=== PATIENT | female | born 1935 | race Caucasian/White ===

== ENCOUNTER → 2017-07-30 | Outpatient (CLI) | payer MEDICARE, OTHER ==
[~2017-07-30] MED LIST: ASPI325T6 PO; COUMADIN 2MG2 MG/TAB PO; DULCOLAX5 MG PO; GLYCERIN SUPPOS1 SU4 RC; NORVASC2.5 MG PO; TENORMIN 2525 MG/TAB; TENORMIN 5050 MG/TAB PO; ULTRAM 50MG TAB50 MG PO; XARELTO10 MG PO; ZOFRAN 4MG T4 MG/TAB PO
== END ==
LOC: COL.RAD 07:51
DX: K55.8 Other vascular disorders of intestine (principal); I70.1 Atherosclerosis of renal artery; R68.81 Early satiety
CPT/HCPCS: A9541; Q9967

== ENCOUNTER → 2017-07-31 | Outpatient (CLI) | payer MEDICARE, OTHER | LOC: COL.RAD 09:35 | DX: Z01.89 Encounter for other specified special examinations (principal) ==

== ENCOUNTER → 2018-05-27 | Outpatient (CLI) | payer MEDICARE, OTHER | LOC: COL.RAD 13:01 | DX: M16.12 Unilateral primary osteoarthritis, left hip (principal) | CPT/HCPCS: J3301; Q9967 ==

== ENCOUNTER → 2018-06-02 | Outpatient (CLI) | payer MEDICARE, OTHER | LOC: MC.RAD 12:46 | DX: N63.10 Unspecified lump in the right breast, unspecified quadrant (principal) ==

== ENCOUNTER → 2019-02-18 | Outpatient (CLI) | payer MEDICARE, OTHER | LOC: MC.RAD 13:46 | DX: C50.511 Malignant neoplasm of lower-outer quadrant of right female breast (principal); N63.11 Unspecified lump in the right breast, upper outer quadrant | CPT/HCPCS: G0279 ==

== ENCOUNTER → 2019-03-02 | Outpatient (CLI) | payer MEDICARE, OTHER | LOC: MC.RAD 07:49 | DX: C50.811 Malignant neoplasm of overlapping sites of right female breast (principal) | CPT/HCPCS: G0279 ==

== ENCOUNTER 2019-05-12 09:11 | Day surgery (SDC) | payer MEDICARE, OTHER ==
[~2019-05-12] VITALS: Ht 165.2 cm; Wt 50.1 kg
[~2019-05-12 09:11] MED LIST changes: +NORVASC 5MG5 MG/TAB PO; -NORVASC2.5 MG PO
[2019-05-12 09:55] LABS: HEMATOCRIT 42.8 % (37.0-47.0); HEMOGLOBIN 13.7 g/dl (12.5-16.0); MEAN CELL VOLUME 96 fl (80.0-100.0); MEAN CORPUSCULAR HEMOGLOBIN 31 pg (27.0-31.0); MEAN CORPUSCULAR HGB CONC 32 g/dl (33.0-37.0); MEAN PLATELET VOLUME 9.1 fl (7.4-10.4); PLATELET COUNT 230 K/mm3 (130-400); RED BLOOD COUNT 4.47 M/mm3 (4.10-5.30); REDCELL DISTRIBUTION WIDTH-CV 13.5 % (11.5-14.5)
[2019-05-12 10:01] LABS: INR 1.4 (0.8-3.0); PROTHROMBIN TIME 16.7 SECONDS (9.7-12.8)
[2019-05-12 10:05] LABS: CALCIUM 9.7 mg/dL (8.4-10.2); CREATININE, serum 0.67 (0.52-1.25); POTASSIUM 4.1 mmol/L (3.4-5.0)
[2019-05-12] MEDS ORDERED: TOPROL XL 50MG50 MG PO (10:06)
[2019-05-12] MEDS ORDERED: FOSAMAX 70MG TA70 MG PO (10:07)
[2019-05-12] MEDS ORDERED: ARIMIDEX1 MG PO (10:08)
[2019-05-12] MEDS ORDERED: NEURONTIN100 MG/CAP PO (10:08)
[2019-05-12 10:09] VITALS: BP 118/85; PULSE 791; TEMP 97.6
[2019-05-12] MEDS ORDERED: ELIQUIS 2.5 PO (10:25)
[2019-05-12] MEDS ORDERED: TAMBOCOR50 MG PO (10:26)
--- NOTE | 2019-05-12 10:26 | NUR ---
pER dR Renu Kaur NURSE,ekg SENT FROM OFFICE.pT HAD DONE JUST PRIOR TO ARRIVAL.nO PRE ekg NEEDED.
[2019-05-12] MEDS ORDERED: TOPROL XL 25MG25 MG PO (10:33)
[2019-05-12 10:50] VITALS: BP 97/65; PULSE 43
[2019-05-12 11:05] VITALS: BP 130/72; PULSE 43
[2019-05-12 11:20] VITALS: BP 130/64; PULSE 45
[2019-05-12 11:35] VITALS: BP 134/67; PULSE 44
--- NOTE | 2019-05-12 11:42 | NUR ---
Discharge instructions given to pt.pt verbalizes understanding.INT removed,catheter tip intact.
--- NOTE | 2019-05-12 11:56 | NUR ---
Pt escorted out via wheelchair by this nurse.
== END 2019-05-12 12:00 | disposition home or self-care (01) ==
LOC: COL.CAR 09:11
PROVIDERS: Internal Medicine Cardiovascular Disease
DX: I48.0 Paroxysmal atrial fibrillation (principal); I48.91 Unspecified atrial fibrillation; Z79.899 Other long term (current) drug therapy; Z79.82 Long term (current) use of aspirin; C50.911 Malignant neoplasm of unspecified site of right female breast; I10 Essential (primary) hypertension; G62.9 Polyneuropathy, unspecified; Z96.641 Presence of right artificial hip joint
CPT/HCPCS: J2704

== ENCOUNTER 2019-07-07 08:31 | Day surgery (SDC) | payer MEDICARE, OTHER ==
[2019-07-07] VITALS (9 sets, daily range): BP systolic 117–156; BP diastolic 62–95; PULSE 44–94; TEMP 97.4–98.2
[~2019-07-07] VITALS: Ht 165.1 cm; Wt 49.3 kg
[~2019-07-07 08:31] MED LIST changes: +ARIMIDEX1 MG PO; +ELIQUIS 2.5 PO; +FOSAMAX 70MG TA70 MG PO; +NEURONTIN100 MG/CAP PO; +TAMBOCOR50 MG PO; +TOPROL XL 25MG25 MG PO; +TOPROL XL 50MG50 MG PO
[2019-07-07] MEDS ORDERED: TOPROL XL 25MG25 MG PO (09:17)
[2019-07-07] MEDS ORDERED: TAMBOCOR50 MG PO (09:20)
[2019-07-07 09:48] LABS: HEMATOCRIT 37.7 % (37.0-47.0); HEMOGLOBIN 12.1 g/dl (12.5-16.0); MEAN CELL VOLUME 95 fl (80.0-100.0); MEAN CORPUSCULAR HEMOGLOBIN 31 pg (27.0-31.0); MEAN CORPUSCULAR HGB CONC 32 g/dl (33.0-37.0); MEAN PLATELET VOLUME 9.2 fl (7.4-10.4); PLATELET COUNT 200 K/mm3 (130-400); RED BLOOD COUNT 3.95 M/mm3 (4.10-5.30); REDCELL DISTRIBUTION WIDTH-CV 13.4 % (11.5-14.5)
[2019-07-07 09:54] LABS: INR 1.1 (0.8-3.0); PROTHROMBIN TIME 12.3 SECONDS (9.7-12.8)
[2019-07-07 10:14] LABS: CALCIUM 9.2 mg/dL (8.4-10.2); CREATININE, serum 0.65 (0.52-1.25); POTASSIUM 3.9 mmol/L (3.4-5.0)
[2019-07-08 00:10] VITALS: BP 113/67; PULSE 64; TEMP 97.2
[2019-07-08 03:52] VITALS: BP 126/69; PULSE 59; TEMP 97.8
[2019-07-08 06:35] LABS: BASO % 0.5 % (0.0-2.0); EOS # 0.1 (0.0-0.7); EOS % 2.4 % (0-4.0); GRAN # 4.3 (1.4-6.5); GRAN % 73.5 % (42.2-75.2); HEMATOCRIT 42.7 % (37.0-47.0); HEMOGLOBIN 13.7 g/dl (12.5-16.0); LYMPH # 0.7 (1.2-3.4); LYMPH % 11.4 % (20.0-51.0); MEAN CELL VOLUME 95 fl (80.0-100.0); MEAN CORPUSCULAR HEMOGLOBIN 30 pg (27.0-31.0); MEAN CORPUSCULAR HGB CONC 32 g/dl (33.0-37.0); MEAN PLATELET VOLUME 9.4 fl (7.4-10.4); MONO # 0.7 (0.1-0.6); MONO % 11.9 % (1.7-9.3); PLATELET COUNT 203 K/mm3 (130-400); RED BLOOD COUNT 4.51 M/mm3 (4.10-5.30); REDCELL DISTRIBUTION WIDTH-CV 13.2 % (11.5-14.5)
[2019-07-08 06:56] LABS: CALCIUM 9.3 mg/dL (8.4-10.2); CREATININE, serum 0.61 (0.52-1.25); POTASSIUM 3.6 mmol/L (3.4-5.0)
[2019-07-08 07:25] VITALS: BP 124/69; PULSE 62; TEMP 97.9
[2019-07-08] MEDS ORDERED: TOPROL XL 50MG50 MG PO (09:13)
[2019-07-08] MEDS ORDERED: CEPHALEXIN500 M1 PO (09:13)
== END 2019-07-08 11:05 | disposition home or self-care (01) ==
LOC: COL.CAR 08:31 → MEDICAL 14:25 → COL.CAR 07-08 11:05
PROVIDERS: Internal Medicine Cardiovascular Disease; Nurse Practitioner
DX: I49.5 Sick sinus syndrome (principal); R55 Syncope and collapse; I77.810 Thoracic aortic ectasia; E78.5 Hyperlipidemia, unspecified; I10 Essential (primary) hypertension; M81.0 Age-related osteoporosis without current pathological fracture; M17.12 Unilateral primary osteoarthritis, left knee; M19.011 Primary osteoarthritis, right shoulder; G60.8 Other hereditary and idiopathic neuropathies; I48.0 Paroxysmal atrial fibrillation; I87.2 Venous insufficiency (chronic) (peripheral); Z88.8 Allergy status to other drugs, medicaments and biological substances; Z88.2 Allergy status to sulfonamides; Z88.1 Allergy status to other antibiotic agents; Z96.641 Presence of right artificial hip joint; Z90.11 Acquired absence of right breast and nipple; Z79.01 Long term (current) use of anticoagulants; Z82.49 Family history of ischemic heart disease and other diseases of the circulatory system; Z80.9 Family history of malignant neoplasm, unspecified
CPT/HCPCS: OP; C1785; C1894; C1898; J0690; J2250; J3010; J7030

== ENCOUNTER → 2019-08-28 | Outpatient (CLI) | payer MEDICARE, OTHER ==
[~2019-08-28] MED LIST changes: +CEPHALEXIN500 M1 PO
== END ==
LOC: COL.RAD 09:10
DX: K82.8 Other specified diseases of gallbladder (principal)
CPT/HCPCS: A9537

== ENCOUNTER → 2019-08-28 | Outpatient (CLI) | payer MEDICARE, OTHER | LOC: MC.RAD 07:53 | DX: N64.4 Mastodynia (principal); Z85.3 Personal history of malignant neoplasm of breast | CPT/HCPCS: G0279 ==

== ENCOUNTER 2019-10-07 07:44 | Inpatient (IN) | payer MEDICARE, OTHER ==
[~2019-10-07] VITALS: Ht 165.1 cm; Wt 48.2 kg
[2019-10-07] MEDS ORDERED: NORVASC 5MG5 MG/TAB PO (08:12)
[2019-10-07] MEDS ORDERED: TOPROL XL 50MG50 MG PO (08:14)
[2019-10-07 08:31] LABS: HEMATOCRIT 40.2 % (37.0-47.0); MEAN CELL VOLUME 100 fl (80.0-100.0); MEAN CORPUSCULAR HEMOGLOBIN 32 pg (27.0-31.0); MEAN CORPUSCULAR HGB CONC 32 g/dl (33.0-37.0); PLATELET COUNT 209 K/mm3 (130-400); RED BLOOD COUNT 4.01 M/mm3 (4.10-5.30)
[2019-10-07 08:32] LABS: INR 1.1 (0.8-3.0); PROTHROMBIN TIME 13.2 SECONDS (9.7-12.8)
[2019-10-07 08:35] LABS: PARTIAL THROMBOPLASTIN TIME 38.3 SECONDS (26.0-37.0)
[2019-10-07 08:42] LABS: CALCIUM 9.2 mg/dL (8.4-10.2); CREATININE, serum 0.7 (0.52-1.25); POTASSIUM 3.8 mmol/L (3.4-5.0)
[2019-10-07 09:00] VITALS: BP 131/73; PULSE 61; TEMP 98.3
[2019-10-07 09:12] LABS: THYROID STIMULATING HORMONE 3.06 uIU/mL (0.465-4.680)
--- NOTE | 2019-10-07 13:15 | NUR ---
Pt transfered to 310 per w/c by nurse [facility] . Report to Mulu Porras RN who assumed care at this time.
[2019-10-07 13:22] VITALS: BP 129/70; PULSE 59; TEMP 97.4
--- NOTE | 2019-10-07 13:23 | NUR ---
Initial visit; Patient and her thanked Electronic [employer] Gathering Camera Person for introducing herself and offering God's blessings prior to surgical procedure.
[2019-10-07 15:53] VITALS: BP 124/72; PULSE 70; TEMP 97.9
[2019-10-07 19:06] VITALS: BP 116/59; PULSE 59; TEMP 98
--- NOTE | 2019-10-07 19:09 | NUR ---
Patient observed ambulating in hallway with steady gait. Denies pain. Call light is available when returning to room.
--- NOTE | 2019-10-07 20:25 | NUR ---
Resting in bed. Assessment complete. Lungs clear. Heart sounds normal. Bowels active x4. Pulses strong throughout. No edema noted. Denies pain. Denies needs. Call light in reach.
--- NOTE | 2019-10-07 23:40 | NUR ---
Sitting at bedside. Denies needs. Telemetry box adjusted for patient. Call light in reach.
[2019-10-07 23:42] VITALS: BP 129/68; PULSE 64
[2019-10-08 03:09] VITALS: BP 137/68; PULSE 64; TEMP 97.5
--- NOTE | 2019-10-08 06:15 | NUR ---
Patient had uneventful night. Resting in bed this Am. Denies needs. Call light in reach.
[2019-10-08 06:22] LABS: BASO % 0.7 % (0.0-2.0); EOS # 0.1 (0.0-0.7); EOS % 1.6 % (0-4.0); GRAN # 2.8 (1.4-6.5); GRAN % 63.8 % (42.2-75.2); HEMOGLOBIN 13.3 g/dl (12.5-16.0); LYMPH % 21.9 % (20.0-51.0); MEAN CELL VOLUME 100 fl (80.0-100.0); MEAN CORPUSCULAR HEMOGLOBIN 32 pg (27.0-31.0); MEAN CORPUSCULAR HGB CONC 32 g/dl (33.0-37.0); MONO # 0.5 (0.1-0.6); MONO % 11.5 % (1.7-9.3); PLATELET COUNT 229 K/mm3 (130-400); RED BLOOD COUNT 4.11 M/mm3 (4.10-5.30); REDCELL DISTRIBUTION WIDTH-CV 13.8 % (11.5-14.5)
[2019-10-08 06:33] LABS: CREATININE, serum 0.67 (0.52-1.25); POTASSIUM 3.9 mmol/L (3.4-5.0)
--- NOTE | 2019-10-08 07:12 | NUR ---
Report given to MICHAEL Hutson
--- NOTE | 2019-10-08 09:35 | NUR ---
Patient has been up in room and ambulating in hallway. is currently at bedside. She denies having pain. Fresh water provided. Call light and personal items are within reach.
[2019-10-08 09:36] VITALS: BP 108/61; PULSE 62; TEMP 97.9
[2019-10-08 12:30] VITALS: BP 136/82; PULSE 82; TEMP 97.6
--- NOTE | 2019-10-08 14:45 | NUR ---
Cocoa Butter Filter Operator met with patient to discuss discharge planning. Patient lives in [place] with her , Papi (ph#[phone]). Patient sees Dr. Snowden for primary care and obtains medications from [facility] with no difficulties. Patient reports independence with ADLS and does not use any DME. Patient states DPOA-HC has been completed with [place] erisa attorney, Tariq Peck. Patient plans to return home upon discharge.
[2019-10-08 18:28] VITALS: BP 120/58; PULSE 63; TEMP 98.2
[2019-10-08 19:29] VITALS: BP 133/73; PULSE 74; TEMP 98.5
--- NOTE | 2019-10-08 19:59 | NUR ---
Resting in bed. Assessment complete. Lungs clear. Heart sounds normal. Bowels active x4. Pulses strong throughout. No edema noted. Denies pain. Denies needs at this time. INT right forearm flushed without complications. Call light in reach.
--- NOTE | 2019-10-08 20:16 | NUR ---
Report given to Aleah, patient reports having a good day and verbalizes no needs. Call light and personal items are within reach.
--- NOTE | 2019-10-08 21:50 | NUR ---
Patient woke up confused to place. Easily reorientated at this time. Will closely monitor.
[2019-10-08 23:15] VITALS: BP 129/72; PULSE 61; TEMP 98.9
--- NOTE | 2019-10-08 23:30 | NUR ---
Patient up to restroom. Alert and orientated at this time. Will continue to monitor.
[2019-10-09 04:12] VITALS: BP 128/82; PULSE 78; TEMP 97.9
[2019-10-09 06:26] LABS: CALCIUM 8.9 mg/dL (8.4-10.2); CREATININE, serum 0.64 (0.52-1.25); POTASSIUM 3.9 mmol/L (3.4-5.0)
--- NOTE | 2019-10-09 06:28 | NUR ---
Patient had uneventful night. Resting in bed this AM. Call light in reach.
[2019-10-09 06:35] LABS: BASO % 0.4 % (0.0-2.0); EOS # 0.1 (0.0-0.7); EOS % 1.7 % (0-4.0); GRAN # 2.9 (1.4-6.5); GRAN % 62.7 % (42.2-75.2); HEMATOCRIT 40.5 % (37.0-47.0); HEMOGLOBIN 13.1 g/dl (12.5-16.0); MEAN CELL VOLUME 99 fl (80.0-100.0); MEAN CORPUSCULAR HEMOGLOBIN 32 pg (27.0-31.0); MEAN CORPUSCULAR HGB CONC 32 g/dl (33.0-37.0); MEAN PLATELET VOLUME 9.1 fl (7.4-10.4); MONO # 0.6 (0.1-0.6); MONO % 12.8 % (1.7-9.3); PLATELET COUNT 216 K/mm3 (130-400); RED BLOOD COUNT 4.09 M/mm3 (4.10-5.30); REDCELL DISTRIBUTION WIDTH-CV 13.8 % (11.5-14.5)
--- NOTE | 2019-10-09 07:27 | NUR ---
Report given to MICHAEL Flowers
[2019-10-09 07:41] VITALS: BP 112/65; PULSE 58; TEMP 98
--- NOTE | 2019-10-09 09:00 | NUR ---
Pt ambulating in hallway with steady gait, denies needs.
[2019-10-09] MEDS ORDERED: BETAPACE 80MG80 MG PO (10:04)
--- NOTE | 2019-10-09 10:47 | NUR ---
Initial visit; Patient thanked Computer Terminal Operator for stopping by and offering spiritual care. Patient appears to be doing well.
--- NOTE | 2019-10-09 11:30 | NUR ---
Discharge instructions reviewed with pt regarding changes to medications and new medications. Pt verbalizes understanding, discharged home, ambulates out of facility accompanied by this nurse and pt's .
== END 2019-10-09 11:30 | disposition home or self-care (01) | DRG 310 ==
LOC: COL.CAR 07:44 → MEDICAL 09:48
PROVIDERS: Nurse Practitioner; ADMIT Internal Medicine Cardiovascular Disease
PROC: 5A2204Z Restoration of Cardiac Rhythm, Single (ICD-10-PCS; principal; 2019-10-07)
DX: I48.0 Paroxysmal atrial fibrillation (principal)
CPT/HCPCS: J7120

== ENCOUNTER → 2020-05-02 | Outpatient (CLI) | payer MEDICARE, OTHER ==
[~2020-05-02] MED LIST changes: +BETAPACE 80MG80 MG PO
== END ==
LOC: MC.RAD 10:15
DX: Z12.31 Encounter for screening mammogram for malignant neoplasm of breast (principal); C50.511 Malignant neoplasm of lower-outer quadrant of right female breast

== ENCOUNTER 2020-06-09 11:13 | Day surgery (SDC) | payer MEDICARE, OTHER ==
[2020-06-09] VITALS (10 sets, daily range): BP systolic 128–172; BP diastolic 59–94; PULSE 59–84; TEMP 96.8–97.6
[~2020-06-09] VITALS: Ht 165.1 cm; Wt 44.8 kg
[2020-06-09] MEDS ORDERED: DULCOLAX S10 MG/SUPP RC (12:05)
[2020-06-09] MEDS ORDERED: BETAPACE AF80 MG/TA1 PO (12:05)
[2020-06-10 04:33] VITALS: BP 122/68; PULSE 66; TEMP 96.9
[2020-06-10] MEDS ORDERED: NORCO 325 MG-51 TAB PO (06:31)
[2020-06-10 08:58] VITALS: BP 134/67; PULSE 67; TEMP 98.2
== END 2020-06-10 10:30 | disposition home or self-care (01) ==
LOC: SDCO 11:13 → JCC 18:00 → SDCO 06-10 10:30
DX: M70.61 Trochanteric bursitis, right hip (principal); M21.751 Unequal limb length (acquired), right femur; M19.90 Unspecified osteoarthritis, unspecified site; F32.9 Major depressive disorder, single episode, unspecified; I10 Essential (primary) hypertension; I48.91 Unspecified atrial fibrillation; Z95.0 Presence of cardiac pacemaker; Z20.828 Contact with and (suspected) exposure to other viral communicable diseases; Z79.01 Long term (current) use of anticoagulants; Z96.641 Presence of right artificial hip joint
CPT/HCPCS: OP; J0690; J1100; J2250; J2405; J2704; J2795; J7030; J7120

== ENCOUNTER → 2021-01-04 | Outpatient (CLI) | payer MEDICARE, OTHER ==
[~2021-01-04] MED LIST changes: +BETAPACE AF80 MG/TA1 PO; +DULCOLAX S10 MG/SUPP RC; +NORCO 325 MG-51 TAB PO
== END ==
LOC: COL.RAD 09:21
DX: M51.36 Other intervertebral disc degeneration, lumbar region (principal); M51.26 Other intervertebral disc displacement, lumbar region

== ENCOUNTER 2021-01-13 09:00 | Day surgery (SDC) | payer MEDICARE, OTHER ==
[2021-01-13] VITALS (7 sets, daily range): BP systolic 130–147; BP diastolic 85–100; PULSE 62–96; TEMP 97
[~2021-01-13] VITALS: Ht 165.1 cm; Wt 48.2 kg
[2021-01-13] MEDS ORDERED: NORVASC2.5 MG PO (09:51)
[2021-01-13] MEDS ORDERED: ARIMIDEX1 MG PO (09:51)
[2021-01-13 09:58] LABS: HEMATOCRIT 39.6 % (37.0-47.0); HEMOGLOBIN 12.6 g/dl (12.5-16.0); MEAN CELL VOLUME 99 fl (80.0-100.0); MEAN CORPUSCULAR HEMOGLOBIN 32 pg (27.0-31.0); MEAN CORPUSCULAR HGB CONC 32 g/dl (33.0-37.0); MEAN PLATELET VOLUME 9.4 fl (7.4-10.4); PLATELET COUNT 204 K/mm3 (130-400); RED BLOOD COUNT 3.99 M/mm3 (4.10-5.30); REDCELL DISTRIBUTION WIDTH-CV 13.2 % (11.5-14.5)
[2021-01-13 10:04] LABS: CALCIUM 9.3 mg/dL (8.4-10.2); CREATININE, serum 0.68 (0.52-1.25)
[2021-01-13 10:07] LABS: INR 1.4 (0.8-3.0); PROTHROMBIN TIME 15.7 SECONDS (9.7-12.8)
[2021-01-13 10:10] LABS: PARTIAL THROMBOPLASTIN TIME 42.7 SECONDS (26.0-37.0)
[2021-01-13 10:35] LABS: THYROID STIMULATING HORMONE 3.63 uIU/mL (0.465-4.680)
[2021-01-13] MEDS ORDERED: PACERONE400 MG PO (11:31)
--- NOTE | 2021-01-13 12:30 | NUR ---
Pt assisted out by wheelchair to 's car. DC instructions were reviewed, pt expressed understanding. Gait has been steady about room. Pt has tolereated PO without issue. IV DC'd with catheter intact. She remained in paced rhythm until infection control coordinator was removed just prior to discharge.
== END 2021-01-13 12:30 | disposition home or self-care (01) ==
LOC: COL.CAR 09:00
PROVIDERS: Internal Medicine Cardiovascular Disease
DX: I48.0 Paroxysmal atrial fibrillation (principal); I10 Essential (primary) hypertension; I08.0 Rheumatic disorders of both mitral and aortic valves; M81.0 Age-related osteoporosis without current pathological fracture; E78.5 Hyperlipidemia, unspecified; I77.819 Aortic ectasia, unspecified site; C50.911 Malignant neoplasm of unspecified site of right female breast; G60.8 Other hereditary and idiopathic neuropathies; Z20.822 Contact with and (suspected) exposure to COVID-19; Z88.1 Allergy status to other antibiotic agents; Z79.83 Long term (current) use of bisphosphonates; Z88.8 Allergy status to other drugs, medicaments and biological substances; Z79.811 Long term (current) use of aromatase inhibitors; Z79.01 Long term (current) use of anticoagulants; Z79.899 Other long term (current) drug therapy; Z90.11 Acquired absence of right breast and nipple; Z95.0 Presence of cardiac pacemaker
CPT/HCPCS: J0282; J7060

== ENCOUNTER → 2021-01-24 | Outpatient (CLI) | payer MEDICARE, OTHER ==
[~2021-01-24] MED LIST changes: +NORVASC2.5 MG PO; +PACERONE400 MG PO; +PERCOCET 325 MG1 TA3 PO; +SALONPAS1 EACH TP; +SYNTHROID 0.0.025 MG PO; +ZOFRAN ODT4 MG PO
== END ==
LOC: ZLAB.WCH 17:35 → ZCOL.LAB 17:35
DX: Z01.89 Encounter for other specified special examinations (principal)

== ENCOUNTER → 2021-03-23 | Outpatient (CLI) | payer MEDICARE, OTHER | LOC: COL.RAD 09:07 | DX: Z13.820 Encounter for screening for osteoporosis (principal); S22.31XA Fracture of one rib, right side, initial encounter for closed fracture; S42.001A Fracture of unspecified part of right clavicle, initial encounter for closed fracture; Z96.641 Presence of right artificial hip joint | CPT/HCPCS: A9503 ==

== ENCOUNTER 2021-04-10 11:22 | Outpatient (CLI) | payer MEDICARE, OTHER ==
[~2021-04-10] VITALS: Ht 165.1 cm; Wt 46.2 kg
[~2021-04-10 11:22] MED LIST changes: -PERCOCET 325 MG1 TA3 PO; -SALONPAS1 EACH TP; -SYNTHROID 0.0.025 MG PO; -ZOFRAN ODT4 MG PO
[2021-04-10 12:00] VITALS: BP 146/74; PULSE 71; TEMP 98.5
[2021-04-10] MEDS ORDERED: SYNTHROID 0.0.025 MG PO (12:53)
[2021-04-10] MEDS ORDERED: SALONPAS1 EACH TP (12:54)
[2021-04-10] MEDS ORDERED: PERCOCET 325 MG1 TA3 PO (12:54)
[2021-04-10] MEDS ORDERED: ZOFRAN ODT4 MG PO (12:54)
== END 2021-04-10 13:43 | disposition home or self-care (01) ==
LOC: COL.CAR 11:22
DX: S22.089A Unspecified fracture of T11-T12 vertebra, initial encounter for closed fracture (principal)

== ENCOUNTER 2021-04-27 14:00 | Day surgery (SDC) | payer MEDICARE, OTHER ==
[~2021-04-27] VITALS: Ht 165.1 cm; Wt 46.9 kg
[~2021-04-27 14:00] MED LIST changes: +PERCOCET 325 MG1 TA3 PO; +SALONPAS1 EACH TP; +SYNTHROID 0.0.025 MG PO; +ZOFRAN ODT4 MG PO
--- NOTE | 2021-04-27 14:30 | NUR ---
PATIENT ADMITED INTO ROOM 324 FOR BOWL PREP PRIOR TO SCHEDULED COLONOSCOPY TOMORROW. A&O. NO C/O PAIN AT REST HOWEVER PATIENT VERBALIZED SHE HAS A BROKEN VERTEBRAE & CLAVICAL FROM PREVIOUS FALL IN JANUARY/FEBRUARY. NOTIFIED OFFICE OF PATIENT'S ARRIVAL, AWAITING ORDERS. HEAD TO TOE ASSESSMENT COMPLETE. STARTED 20 GAUZE IV INTO RIGHT FORARM. ORIENTED TO ROOM. CALL LIGHT IN REACH. LEFT. BED ALARM ON.
[2021-04-27 15:18] VITALS: BP 150/90; PULSE 96; TEMP 98.1
[2021-04-27 16:00] VITALS: BP 137/77; PULSE 98; TEMP 98
[2021-04-27 20:01] VITALS: BP 159/88; PULSE 99; TEMP 97.7
[2021-04-27 20:13] VITALS: BP 105/65; PULSE 67; TEMP 97.6
[2021-04-28 00:08] VITALS: BP 139/89; PULSE 98; TEMP 98.1
[2021-04-28 04:31] VITALS: BP 127/71; PULSE 87; TEMP 98
--- NOTE | 2021-04-28 07:05 | NUR ---
PATIENT ALERT AND ORIENTED. BOWEL PREP DONE FOR COLONOSCOPY TODAY. NO ISSUES OVER NIGHT. WILL CONTINUE TO MONITOR.
--- NOTE | 2021-04-28 08:50 | NUR ---
PATIENT GOING DOWN TO ENDO FOR EGD/COLON. NPO. CONSENT ON CHART. IV FLUIDS INFUSING VIA GRAVITY. PATIENT OFF FLOOR.
--- NOTE | 2021-04-28 10:19 | NUR ---
Initial visit; Honeycomb Blanket Maker offered God's blessings as Hedy was about to be transported to her surgical procedures.
[2021-04-28 10:30] VITALS: BP 142/72; PULSE 84
--- NOTE | 2021-04-28 10:30 | NUR ---
PATIENT BACK IN ROOM FROM EGD/COLON. A&O. VSS. DENIES PAIN. TO COME CONSULT WITH PATIENT AND . PATIENT ALSO SCHEDULED FOR A SWALLOW STUDY LATER TODAY. NO OTHER NEEDS AT THIS TIME. CALL LIGHT IN REACH.
[2021-04-28 10:45] VITALS: BP 144/84; PULSE 87
[2021-04-28 11:00] VITALS: BP 152/80; PULSE 84
[2021-04-28 13:49] VITALS: BP 149/73; PULSE 70
--- NOTE | 2021-04-28 14:20 | NUR ---
PATIENT OFF FLOOR FOR SWALLOW STUDY.
--- NOTE | 2021-04-28 16:00 | NUR ---
PATIENT IS DISCHARGING HOME VIA WC TO PERSONAL VEHICLE WITH . GAVE DISCHARGE INSTRUCITONS AND DISCUSSED F/U APT. ANSWERED QUESTIONS/CONCERNS. DC'D RIGHT FORARM IV, COVERED SITE WITH GAUZE & COBAN. PATIENT IS DRESSED, PACKED AND DISCHARGED.
== END 2021-04-28 16:00 | disposition home or self-care (01) ==
LOC: SURG 14:00 → SDCO 14:00 → SURG 14:30 → SDCO 04-28 09:00
DX: K29.51 Unspecified chronic gastritis with bleeding (principal); D12.2 Benign neoplasm of ascending colon; K62.89 Other specified diseases of anus and rectum; R13.10 Dysphagia, unspecified; R19.7 Diarrhea, unspecified; K22.8 Other specified diseases of esophagus; K22.4 Dyskinesia of esophagus; K63.89 Other specified diseases of intestine; M54.9 Dorsalgia, unspecified; M19.90 Unspecified osteoarthritis, unspecified site; M81.0 Age-related osteoporosis without current pathological fracture; E78.5 Hyperlipidemia, unspecified; G60.8 Other hereditary and idiopathic neuropathies; K44.9 Diaphragmatic hernia without obstruction or gangrene; K63.4 Enteroptosis; K57.30 Diverticulosis of large intestine without perforation or abscess without bleeding; I48.91 Unspecified atrial fibrillation; I10 Essential (primary) hypertension; E03.9 Hypothyroidism, unspecified; Z85.3 Personal history of malignant neoplasm of breast; Z79.891 Long term (current) use of opiate analgesic; Z79.899 Other long term (current) drug therapy; Z79.890 Hormone replacement therapy; Z79.01 Long term (current) use of anticoagulants
CPT/HCPCS: OP; J2704; J7030